=== PATIENT | female | born 1990 | race Caucasian/White ===

== ENCOUNTER → 2019-03-05 | Emergency (ER) | payer OTHER ==
[~2019-03-05] MED LIST: TUSSI PRES-B L120 M1 PO; ZITHROMAX TRI-500 MG PO
== END | disposition left against medical advice (07) ==
LOC: ER 19:27
DX: Z53.20 Procedure and treatment not carried out because of patient's decision for unspecified reasons (principal)

== ENCOUNTER 2019-04-16 09:34 | Emergency (ER) | payer OTHER ==
[~2019-04-16] VITALS: Ht 157.5 cm; Wt 68.5 kg
[2019-04-16] MEDS ORDERED: PRENATAL + DHA1 EAC1 (09:56)
== END 2019-04-16 14:49 | disposition home or self-care (01) ==
LOC: ER 09:34
DX: O26.891 Other specified pregnancy related conditions, first trimester (principal); E86.0 Dehydration; Z34.01 Encounter for supervision of normal first pregnancy, first trimester

== ENCOUNTER → 2019-04-26 | Outpatient (CLI) | payer OTHER ==
[~2019-04-26] MED LIST changes: +PRENATAL + DHA1 EAC1
== END | disposition home or self-care (01) ==
LOC: PRENATAL 11:00
DX: O36.80X0 Pregnancy with inconclusive fetal viability, not applicable or unspecified (principal)

== ENCOUNTER → 2019-06-07 | Outpatient (CLI) | payer OTHER | END | disposition home or self-care (01) | LOC: PRENATAL 08:00 | DX: O28.1 Abnormal biochemical finding on antenatal screening of mother (principal); O35.3XX0 Maternal care for (suspected) damage to fetus from viral disease in mother, not applicable or unspecified ==

== ENCOUNTER → 2019-07-16 | Emergency (ER) | payer OTHER ==
[~2019-07-16] VITALS: Ht 157.5 cm; Wt 78.5 kg
== END | disposition home or self-care (01) ==
LOC: ER 23:37
DX: R53.81 Other malaise (principal); N39.0 Urinary tract infection, site not specified

== ENCOUNTER 2019-11-01 19:02 | Inpatient (IN) | payer OTHER ==
[~2019-11-01] VITALS: Ht 157.5 cm; Wt 3.6 kg
[2019-11-01] MEDS ORDERED: PROBIOTIC1 EAC2 PO (19:49)
[2019-11-01] MEDS ORDERED: VALTREX1000 MG PO (19:49)
[2019-11-04] MEDS ORDERED: IBUPROFEN800 MG PO (13:17)
[2019-11-04] MEDS ORDERED: DOCUSATE SODIU100 MG PO (13:17)
[2019-11-04] MEDS ORDERED: PANADOL EXTRA500 MG PO (13:18)
== END 2019-11-04 16:01 | disposition home or self-care (01) | DRG 788 ==
LOC: LDR 19:02 → OB/GYN 11-02 20:12 → SURG-SUITE 11-03 10:15
PROVIDERS: ADMIT Obstetrics & Gynecology
PROC: 4A1HXFZ Monitoring of Products of Conception, Cardiac Rhythm, External Approach (ICD-10-PCS; 2019-11-02)
PROC: 3E033VJ Introduction of Other Hormone into Peripheral Vein, Percutaneous Approach (ICD-10-PCS; 2019-11-02)
PROC: 10D00Z1 Extraction of Products of Conception, Low, Open Approach (ICD-10-PCS; principal; 2019-11-02 17:00)
DX: O62.1 Secondary uterine inertia (principal); O61.0 Failed medical induction of labor; O48.0 Post-term pregnancy; Z3A.40 40 weeks gestation of pregnancy; Z37.0 Single live birth